=== PATIENT | male | born 1940 | race Caucasian/White ===

== ENCOUNTER 2020-01-10 12:44 | Outpatient (NON) | payer MEDICARE, SELFPAY ==
[2020-01-10 23:21] LABS: SARS-CoV-2 RNA PCR Negative
== END 2020-01-10 12:45 ==
PROVIDERS: PCP Chiropractor; Visit Provider Chiropractor
DX: R05 Cough (principal); Z20.828 Contact with and (suspected) exposure to other viral communicable diseases
CPT/HCPCS: 87635; C9803; U0003

== ENCOUNTER 2022-03-17 18:16 | Emergency (ER) | payer MEDICARE, SELFPAY ==
[2022-03-17 18:26] VITALS: BP 176/92; PULSE 78; TEMP 36.8; O2SAT 98
--- NOTE | 2022-03-17 18:28 | ED.ALLEREA ---
HPI - Allergic Reaction General Chief complaint: Allergic Reaction Stated complaint: allergic reaction Time Seen by Provider: 03/17/22 18:18 Source: patient and RN notes reviewed Mode of arrival: ambulatory Limitations: no limitations History of Present Illness HPI narrative: patient states that he started on some Bactrim antibiotic on Thursday. Thursday evening began having some symptoms of some swelling in his mouth and around his teeth and tongue. He normally takes Benadryl at night to sleep. Said it got worse on Thursday yesterday and then he called his physician this morning recommended to come to the emergency room. Patient states he had a lot of meetings today so we could not come until this evening. He says the swelling in his mouth is pretty much gone away either still just a little bit on the inside of his lower lip. He said it was difficult to wear his dentures yesterday but today it is better. He is not having any difficulty breathing. He denies any rash. He says he just came to get checked out . MD complaint: allergic reaction Onset (ago): day(s) (2) Exposure: medication (sulfa) Symptoms: lip swelling and other (mouth) Severity: moderate Treatment prior to arrival: benadryl Previous Allergic Reaction History: none Related Data Allergies Allergy/AdvReac Type Severity Reaction Status Date / Time Influenza Virus Vaccines Allergy Unknown ARM Verified 03/17/22 18:35 TURNED BLACK, SICK lisinopril Allergy Unknown Unknown Verified 03/17/22 18:35 nitrofurantoin Allergy Unknown Unknown Verified 03/17/22 18:35 temazepam Allergy Unknown Unknown Verified 03/17/22 18:35 zolpidem Allergy Unknown Unknown Verified 03/17/22 18:35 Sulfa (Sulfonamide Allergy Swelling Verified 03/17/22 18:37 Antibiotics) of Lip/Tongue/Throat Review of Systems Review of Systems: All systems reviewed & are unremarkable except as noted in HPI and below PMFSH Past Medical History Medical History (Updated 03/17/22 @ 18:42 by Barry Bernal MD) Bilateral ocular hypertension CKD (chronic kidney disease), stage III Enlarged prostate with lower urinary tract symptoms (LUTS) Essential hypertension Mixed hyperlipidemia Neurogenic bladder SNHL (sensorineural hearing loss) Surgical History Surgical History (Updated 03/17/22 @ 18:39 by Barry Bernal MD) History of meniscectomy of left knee Family History Family History (Updated 12/08/13 @ 07:13 by DOCTOR UNKNOWN) Mother Hypertension Sibling Family history of malignant neoplasm Social History Social History Smoking status: Never smoker Alcohol intake: current Exam Const: General: healthy appearing, no acute distress and alert Nutritional Appearance: well nourished Orientation/consciousness: patient oriented x3 Limitations: no limitations HENMT: Head: normal to inspection Ears: external ears normal and hearing grossly impaired on the left and diffuse Face/Nose/Sinus: Normal external nose present Face and sinus: normal facial exam Mouth: Yes Normal oral and palatal mucosa present, Yes lip normal and Yes moist mucous membranes Teeth and gingiva: caries and poor dentition Throat: posterior oropharynx normal Eyes: Conjunctivae: conjunctivae normal Pupils: Equal, round and reactive pupils present EOM: EOMs intact bilaterally Neck: Neck: normal visual inspection Resp: Effort & Inspection: normal respiratory effort Auscultation: clear to auscultation bilaterally Cardio: Rate: regular rate Rhythm: regular rhythm GI: GI Palp: Yes Soft to palpation and Yes Tenderness to palpation present (GI) Auscultation: normal bowel sounds Back/Spine/Pelvis: Cervical Spine: cervical ROM normal Thoracic/Lumbar Spine: thoraco-lumbar ROM normal Skin: General skin exam: normal color Rashes: no rashes Neuro: General: patient oriented x3, moves all extremities, no focal motor deficits and CN's II-XI intact
[2022-03-17 18:37] VITALS: RESP 18
[2022-03-17 18:49] VITALS: BP 154/92
== END 2022-03-17 18:51 | disposition home or self-care (01) ==
PROVIDERS: Emergency Provider Emergency Medicine
DX: T78.40XA Allergy, unspecified, initial encounter (principal); I12.9 Hypertensive chronic kidney disease with stage 1 through stage 4 chronic kidney disease, or unspecified chronic kidney disease; N18.30 Chronic kidney disease, stage 3 unspecified; E78.2 Mixed hyperlipidemia
CPT/HCPCS: 99281